=== PATIENT | female | born 1985 | race Two or more races ===

== ENCOUNTER 2019-06-24 11:11 | Outpatient (CLI) | payer OTHER | END 2019-06-24 11:14 | disposition home or self-care (01) | LOC: RX STUDY 11:11 | DX: N93.8 Other specified abnormal uterine and vaginal bleeding (principal); D25.9 Leiomyoma of uterus, unspecified ==

== ENCOUNTER 2024-06-06 03:59 | Emergency (ER) | payer OTHER ==
[~2024-06-06] VITALS: Ht 152.4 cm; Wt 56.7 kg
[2024-06-06 05:35] LABS: HEMATOCRIT 37.2 % (36.0-45.00); HEMOGLOBIN 12.9 g/dL (12.0-15.00); MEAN CELL VOLUME 88.1 fL (80.00-100.00); MEAN CORPUSCULAR HEMOGLOBIN 30.5 pg (27.00-32.0); MEAN CORPUSCULAR HGB CONC 34.6 g/dl (32.0-36.0); RED BLOOD COUNT 4.22 M/uL (4.00-6.00); RED CELL DISTRIBUTION WIDTH 13.2 % (11.5-14.5)
[2024-06-06 05:36] LABS: PLATELET COUNT 130 K/uL (150-450)
== END 2024-06-06 07:25 | disposition home or self-care (01) ==
LOC: ER 04:01
DX: B34.9 Viral infection, unspecified (principal); Z20.822 Contact with and (suspected) exposure to COVID-19